=== PATIENT | female | born 1990 | race Asian ===

== ENCOUNTER 2016-09-24 17:42 | Emergency (ER) | payer OTHER ==
[~2016-09-24] VITALS: Ht 160 cm; Wt 53.3 kg
[2016-09-24 17:45] VITALS: Ht 160 cm; Wt 53.3 kg
[2016-09-24 17:57] VITALS: O2SAT 99
[2016-09-24] MEDS ORDERED: BCPILLS PO (18:21)
[2016-09-24 18:35] LABS: BASO % 0.4 %; BASO ABS # 0.02 K/uL (0-0.2); COMPLETE YES; EOS % 3.1 %; LYMPH % 37.4 %; LYMPH ABS # 1.67 K/uL (1.2-3.4); MEAN CELL VOLUME 87.9 fL (80-100); MEAN CORPUSCULAR HEMOGLOBIN 28.8 pg (25-34); MEAN CORPUSCULAR HGB CONC 32.8 g/dl (32-36); MEAN PLATELET VOLUME 9.8 fL (7.4-10.4); MONO % 8.5 %; NEUT % 50.6 %; PLATELET COUNT 201 K/uL (130-400); RED BLOOD COUNT 3.64 M/uL (4.2-5.4); WHITE BLOOD COUNT 4.47 K/uL (4.8-10.8)
--- NOTE | 2016-09-24 18:43 | DIAGNOSTIC IMAGING REPORT ---
CHEST 2 VIEWS ROUTINE CLINICAL HISTORY: palpitations COMPARISON STUDY: No previous studies for comparison. FINDINGS: The cardiac and mediastinal contours are normal. There is no evidence of focal pulmonary consolidation. There is no evidence of failure. No pleural effusions are visualized.[ IMPRESSION: No active disease in the chest. Electronically signed by: Denver Kerns M.D. 09/24/2016 6:42 PM Dictated Date/Time: 09/24/2016 6:42 PM
[2016-09-24 18:52] LABS: ALT/SGPT 17 U/L (12-78); AST/SGOT 24 U/L (15-37); BLOOD UREA NITROGEN 8 mg/dl (7-18); BUN/CREATININE RATIO 13.5 (10-20); CALCIUM 8.2 mg/dl (8.5-10.1); CARBON DIOXIDE 29 mmol/L (21-32); CHLORIDE 108 mmol/L (98-107); CREATININE 0.62 mg/dl (0.60-1.20); GLUCOSE 86 mg/dl (70-99); MAGNESIUM 2.2 mg/dl (1.8-2.4); POTASSIUM 3.7 mmol/L (3.5-5.1); SODIUM 143 mmol/L (136-145)
[2016-09-24 19:03] LABS: ALKALINE PHOSPHATASE 45 U/L (45-117)
[2016-09-24 19:40] VITALS: BP 128/95; PULSE 67; TEMP 37; O2SAT 96
--- NOTE | 2016-09-25 01:50 | EMERGENCY ROOM VISIT NOTE ---
History Report prepared by Obey: Dwaine So Under the Supervision of: Dr. Jeromy Black D.O. First contact with patient: 17:48 Chief Complaint: CHEST PAIN Stated Complaint: CHEST PAIN History of Present Illness The patient is a 25 year old female who presents to the Emergency Room with complaints of an intermittent irregular heart rate beginning three days ago. The patient states that she was lifting weight and squatting the day of the onset. She reports that after her third set of squats, her heart was racing, vision changes, and she felt pressure in her chest. The patient states that she had to sit on the ground and hold her legs until she calmed down after a couple of minutes. She denies calf swelling and having tingling or numbness in her hands and feet. The patient states that today she was racing when all of a sudden her heart rate began to increase. She reports that it stopped after a few minutes. The patient notes that she currently does not feel her heart racing. She denies any history of heart disease, DM, hypertension, high cholesterol, smoking, cancer, family members dying at a young age, hemoptysis, previous blood clots and recent travel. The patient states that she does take control. Source of History: patient Onset: 3 days ago Position: other (heart) Quality: other (irregular rhythm) Timing: intermittent Associated Symptoms: No numbness Note: Associated symptoms: chest pressure and vision changes Denies: calf swelling Review of Systems See HPI for pertinent positives & negatives. A total of 10 systems reviewed and were otherwise negative. Family History Hypertension Social History Smoking Status: Never Smoker Marital Status: single Occupation Status: student Current/Historical Medications Scheduled Control Pills ( Control Pills), 1 TAB PO DAILY Allergies Coded Allergies: No Known Allergies (Unverified , 09/24/16) Physical Exam Vital Signs Date Time Temp Pulse Resp B/P (MAP) Pulse Ox O2 Delivery O2 Flow Rate FiO2 09/24/16 19:40 37.0 67 18 128/95 96 09/24/16 18:10 67 09/24/16 18:07 65 18 128/95 96 Room Air 09/24/16 17:57 99 Room Air 09/24/16 17:45 37.0 76 17 122/85 99 Room Air Physical Exam GENERAL: alert, well appearing, well nourished, no distress, non-toxic, sitting up in bed, anxious EYE EXAM: normal conjunctiva OROPHARYNX: no exudate, no erythema, lips, buccal mucosa, and tongue normal and mucous membranes are moist NECK: supple, no nuchal rigidity, no adenopathy, non-tender LUNGS: Clear to auscultation. Normal chest wall mechanics HEART: no murmurs, S1 normal and S2 normal CHEST: No reproducible anterior chest well tenderness ABDOMEN: abdomen soft, non-tender, normo-active bowel sounds, no masses, no rebound or guarding. BACK: Back is symmetrical on inspection and there is no deformity, no midline tenderness, no CVA tenderness. SKIN: no rashes and no bruising UPPER EXTREMITIES: upper extremities are grossly normal. LOWER EXTREMITIES: No pitting edema. Calves are equal and bilateral. NEURO EXAM: Normal sensorium, cranial nerves II-XII intact, normal speech, no weakness of arms, no weakness of legs. No drift. Finger to nose intact. Gross sensation intact. Medical Decision & Procedures ER Provider Diagnostic Interpretation: Radiology results as stated below per my review and the radiologist's interpretation: CHEST 2 VIEWS ROUTINE CLINICAL HISTORY: palpitations COMPARISON STUDY: No previous studies for comparison. FINDINGS: The cardiac and mediastinal contours are normal. There is no evidence of focal pulmonary consolidation. There is no evidence of failure. No pleural effusions are visualized.[ IMPRESSION: No active disease in the chest. Electronically signed by: Denver Kerns M.D. 09/24/2016 6:42 PM Dictated Date/Time: 09/24/2016 6:42 PM Laboratory Results 09/24/16 18:25 Red Blood Count 3.64, Mean Corpuscular Volume 87.9, Mean Corpuscular Hemoglobin 28.8, Mean Corpuscular Hemoglobin Concent 32.8, Mean Platelet Volume 9.8, Neutrophils (%) (Auto) 50.6, Lymphocytes (%) (Auto) 37.4, Monocytes (%) (Auto) 8.5, Eosinophils (%) (Auto) 3.1, Basophils (%) (Auto) 0.4, Neutrophils # (Auto) 2.26, Lymphocytes # (Auto) 1.67, Monocytes # (Auto) 0.38, Eosinophils # (Auto) 0.14, Basophils # (Auto) 0.02 09/24/16 18:25 Test 09/24/16 18:25 White Blood Count 4.47 K/uL (4.8-10.8) Red Blood Count 3.64 M/uL (4.2-5.4) Hemoglobin 10.5 g/dL (12.0-16.0) Hematocrit 32.0 % (37-47) Mean Corpuscular Volume 87.9 fL (80-100) Mean Corpuscular Hemoglobin 28.8 pg (25-34) Mean Corpuscular Hemoglobin Concent 32.8 g/dl (32-36) Platelet Count 201 K/uL (130-400) Mean Platelet Volume 9.8 fL (7.4-10.4) Neutrophils (%) (Auto) 50.6 % Lymphocytes (%) (Auto) 37.4 % Monocytes (%) (Auto) 8.5 % Eosinophils (%) (Auto) 3.1 % Basophils (%) (Auto) 0.4 % Neutrophils # (Auto) 2.26 K/uL (1.4-6.5) Lymphocytes # (Auto) 1.67 K/uL (1.2-3.4) Monocytes # (Auto) 0.38 K/uL (0.11-0.59) Eosinophils # (Auto) 0.14 K/uL (0-0.5) Basophils # (Auto) 0.02 K/uL (0-0.2) RDW Standard Deviation 41.0 fL (36.4-46.3) RDW Coefficient of Variation 12.5 % (11.5-14.5) Immature Granulocyte % (Auto) 0.0 % Immature Granulocyte # (Auto) 0.00 K/uL (0.00-0.02) D-Dimer < 190 ug/L FEU (0-500) Anion Gap 6.0 mmol/L (3-11) Est Creatinine Clear Calc Drug Dose 116.7 ml/min Estimated GFR () 147.3 Estimated GFR (Non- 127.1 BUN/Creatinine Ratio 13.5 (10-20) Calcium Level 8.2 mg/dl (8.5-10.1) Magnesium Level 2.2 mg/dl (1.8-2.4) Total Bilirubin 0.3 mg/dl (0.2-1) Direct Bilirubin < 0.1 mg/dl (0-0.2) Aspartate Amino Transf (AST/SGOT) 24 U/L (15-37) Alanine Aminotransferase (ALT/SGPT) 17 U/L (12-78) Alkaline Phosphatase 45 U/L (45-117) Troponin I < 0.015 ng/ml (0-0.045) Total Protein 7.6 gm/dl (6.4-8.2) Albumin 3.6 gm/dl (3.4-5.0) Thyroid Stimulating Hormone (TSH) 3.610 uIu/ml (0.300-4.500) Laboratory results per my review. ECG Indication: chest pain Rate (beats per minute): 73 Rhythm: sinus rhythm Findings: no ectopy, other (normal axis) ED Course ED COURSE: Vital signs were reviewed and showed hypertensive The patients medical record was reviewed The above diagnostic studies were performed and reviewed. ED treatments and interventions as stated above. 175: The patient was evaluated in room A10. A complete history and physical examination was performed. 193: Upon reevaluation, the patient is resting and in no distress. I discussed my findings with the patient and she understands and agrees with the treatment plan. Based on the patients age, coexisting illnesses, exam and lab findings the decision to treat as an outpatient was made. The patient remained stable while under my care. The patient appeared well at the time of discharge. Medical Decision Differential diagnoses includes but is not limited to acute coronary syndrome, myocardial infarction, pericarditis, pulmonary embolus, aortic dissection, pneumonia, pneumothorax, musculoskeletal, shingles, esophageal. Medication Reconciliation: I attest that I have personally reviewed the patient' s current medication list. Blood pressure screening: Patient was found to have an elevated blood pressure and was referred to their primary doctor for recheck and further treatment. Patient is a 22-year-old female who presents the ER for feeling her heart race. This has been becoming and going intermittently. Patient has no cardiac risk factors. She is a low risk for PE with control being her only risk factors. She completely neurologically intact. She was referred in for a CK of 500. She was working out earlier today. Labs including CBC, BMP, LFTs, troponin and TSH were normal. D-dimer was negative. Chest x-ray was unremarkable. An EKG was nondiagnostic. Patient was updated regards to findings was discharged to follow-up with her primary care doctor regards to her palpitations/feeling her heart race which I do believe is likely secondary to anxiety as she has been having these symptoms following breaking up with her boyfriend 2 days ago. Discussed with Pt concerning signs and symptoms to watch out for. Pt was instructed to follow up with their PCP and discussed with the patient their option to return to the ED at anytime for persistent or worsening symptoms. The appropriate anticipatory guidance and out-patient management, including indications for return to the emergency department, were explained at length to the patient and understood. Impression Primary Impression: Palpitations Scribe Attestation The scribe's documentation has been prepared under my direction and personally reviewed by me in its entirety. I confirm that the note above accurately reflects all work, treatment, procedures, and medical decision making performed by me. Departure Information Dispostion Home / Self-Care Referrals No Doctor, Assigned (PCP) Forms HOME CARE DOCUMENTATION FORM, IMPORTANT VISIT INFORMATION Patient Instructions ED Palpitations, My [facility] Additional Instructions Please follow up with your primary care doctor or if you are a student [facility] services with in the next 24 hours. Any worsening of your symptoms, please return to the ED immediately. This includes fevers greater than 100.4, passing out, new or worsening chest pain, shortness of breath, or any other concerning signs or symptoms from your standpoint.
== END 2016-09-24 19:40 | disposition home or self-care (01) ==
LOC: C.EDB 17:44 → C.EDA 19:40
DX: R00.2 Palpitations (principal); Z82.49 Family history of ischemic heart disease and other diseases of the circulatory system; Z79.3 Long term (current) use of hormonal contraceptives